=== PATIENT | female | born 1975 | race African-American/Black ===

== ENCOUNTER 2018-04-07 21:50 | Emergency (ER) | payer OTHER ==
[2018-04-07] MEDS: SUMATRIPTAN 25 MG TAB PO (23:24)
[2018-04-07] MEDS: FLUCONAZOLE 150 MG TAB PO (23:24)
== END 2018-04-08 00:45 | disposition home or self-care (01) ==
LOC: E/R 04-08 00:45
DX: B37.3 Candidiasis of vulva and vagina (principal); G43.909 Migraine, unspecified, not intractable, without status migrainosus
CPT/HCPCS: 99283; Z7502